=== PATIENT | male | born 1995 | race Caucasian/White ===

== ENCOUNTER 2017-02-13 17:03 | Emergency (ER) | payer OTHER | END 2017-02-13 18:30 | disposition home or self-care (01) | LOC: D.ER 17:03 | DX: J06.9 Acute upper respiratory infection, unspecified (principal); J20.9 Acute bronchitis, unspecified; R50.9 Fever, unspecified ==

== ENCOUNTER 2017-06-24 23:32 | Emergency (ER) | payer OTHER ==
[2017-06-25 00:03] LABS: APPEARANCE CLEAR (CLEAR); BILIRUBIN NEGATIVE (NEGATIVE); COLOR STRAW (YELLOW); GLUCOSE NEGATIVE (NEGATIVE); KETONE NEGATIVE (NEGATIVE); NITRITE NEGATIVE (NEGATIVE); PROTEIN NEGATIVE (NEGATIVE); SPECIFIC GRAVITY 1.005 (1.005-1.020); UROBILINOGEN NORMAL (NORMAL)
== END 2017-06-25 00:46 | disposition home or self-care (01) ==
LOC: D.ER 23:32
PROVIDERS: Emergency Medicine
DX: N20.0 Calculus of kidney (principal); R30.0 Dysuria